=== PATIENT | male | born 1940 | race Caucasian/White ===

== ENCOUNTER 2019-10-01 06:32 | Outpatient (CLI) | payer MEDICARE ==
[2019-10-01 13:57] LABS: Hemoglobin 16.2 g/dL (14.0-18.0); Mean Corpuscular HGB CONC 32.8 g/dL (32.0-36.0); Mean Corpuscular Hemoglobin 31.5 pg (27.0-31.0); Mean Platelet Volume 7.1 fL (7.4-10.4); Platelet Count 331 thou/uL (130-400); RBC Distribution Width 12.6 % (11.5-14.5); Red Blood Cell (RBC) Count 5.15 mill/uL (4.70-6.10); White Blood Cell (WBC) Count 8.3 thou/uL (4.8-10.8)
[2019-10-01 14:02] LABS: INR-International Normal Ratio 0.9; PTT 28.1 SEC (22.9-36.1); Prothrombin Time 12.4 SEC (12.0-14.7)
[2019-10-01 14:23] LABS: Anion Gap 16 mmol/L (10-20); BUN (Urea Nitrogen) 14 mg/dL (8.4-25.7); Calc. Creatinine Clearance 0 mL/min (70-130); Calcium 9.5 mg/dL (7.8-10.44); Carbon Dioxide 23 mmol/L (23-31); Chloride 105 mmol/L (98-107); Estimated GFR-MDRD 74; Glucose 75 mg/dL (83-110); Potassium 4.1 mmol/L (3.5-5.1); Sodium 140 mmol/L (136-145)
== END 2019-10-01 06:33 | disposition home or self-care (01) ==
LOC: LABBT 06:32
PROVIDERS: ATTEND Orthopaedic Surgery
DX: Z01.812 Encounter for preprocedural laboratory examination (principal); M17.11 Unilateral primary osteoarthritis, right knee
CPT/HCPCS: 80048; 85027; 85610; 85730; 86850; 86900; 86901; 87081

== ENCOUNTER 2019-10-01 12:30 | Inpatient (IN) | payer MEDICARE ==
[2019-10-01 12:11] VITALS: BMI 33.2
[2019-10-05] MEDS ORDERED: Sodium Chloride 0.9% 100 ML ONE ×2 (06:37→10:32)
[2019-10-05] MEDS ORDERED: Tranexamic Acid 1,000 MG/10 ML VIAL ONE ×2 (06:37→10:30)
[2019-10-05] MEDS ORDERED: Fentanyl 100 MCG/2 ML VIAL ONE ×4 (06:53→10:41)
[2019-10-05] MEDS ORDERED: Lidocaine 1% (PF) 30 ML VIAL ONE (06:53)
[2019-10-05] MEDS ORDERED: Midazolam HCl 2 mg/2 ml Vial ONE (06:53)
[2019-10-05] MEDS ORDERED: Neomycin-Polymyxin 1 ML AMP ONE (08:06)
[2019-10-05] MEDS ORDERED: Zolpidem Tartrate 5 MG TAB PO PRN (08:17)
[2019-10-05] MEDS ORDERED: Promethazine HCl 25 MG/ML VIAL IM PRN ×3 (08:17→12:17)
[2019-10-05] MEDS ORDERED: Ropivacaine HCl/PF 250 ML in Premix Bag 1 BAG NERVE BLCK SCH (08:17)
[2019-10-05] MEDS ORDERED: traMADol HCl 50 MG TAB PO PRN (08:17)
[2019-10-05] MEDS ORDERED: HYDROcodone/Acetaminophen 10/325 mg Tablet PO PRN ×3 (08:17→12:17)
[2019-10-05] MEDS ORDERED: Ondansetron PF 4 MG/2 ML Vial IVP PRN ×2 (08:17→12:17)
[2019-10-05] MEDS ORDERED: Fentanyl 100 MCG/2 ML VIAL SLOW IVP PRN (08:18)
[2019-10-05] MEDS ORDERED: Acetaminophen 325 MG TAB PO PRN ×2 (08:19→12:17)
[2019-10-05] MEDS ORDERED: Bupivacaine 0.25% HCL 30 ML VIAL ONE (08:24)
[2019-10-05] MEDS ORDERED: Ondansetron HCl/PF 4 MG/2 ML Vial IVP PRN (08:25)
[2019-10-05] MEDS ORDERED: Promethazine HCl 25 MG/ML VIAL SLOW IVP PRN (08:25)
--- NOTE | 2019-10-05 10:13 | RAD ---
XR Knee Rt 2 View: 10/05/2019 9:56 AM CLINICAL INDICATION: Right total knee replacement COMPARISON: None. FINDINGS: Bones: No acute fracture is demonstrated. Joints: There is a right total knee prosthesis that projects in the expected position. There is scatt ered intra-articular and periarticular soft tissue gas. Soft Tissue: No acute abnormality.. IMPRESSION: Right total knee replacement.
[2019-10-05] MEDS ORDERED: Ropivacaine 0.2% HCl/PF (40 MG/20 ML VIAL) ONE (10:32)
[2019-10-05] MEDS ORDERED: Ketorolac Tromethamine 30 MG/ML VIAL ONE (10:32)
[2019-10-05] MEDS ORDERED: Ondansetron PF 4 MG/2 ML Vial ONE (10:32)
[2019-10-05] MEDS ORDERED: Lidocaine 1% PF 5 ML VIAL ONE (10:32)
[2019-10-05] MEDS ORDERED: Ropivacaine 0.5% HCl/PF (150 MG/30 ML VIAL) ONE (10:32)
[2019-10-05] MEDS ORDERED: PHENYLEPHRINE-NS 100 MCG/ML 10 ML SYRINGE ONE (10:32)
[2019-10-05] MEDS ORDERED: Dexamethasone 20 MG/5 ML VIAL ONE (10:32)
[2019-10-05] MEDS ORDERED: PROPOFOL 200 MG/20 ML VIAL ONE (10:32)
[2019-10-05] MEDS ORDERED: diphenhydrAMINE 25 MG CAP PO PRN (12:17)
[2019-10-05] MEDS ORDERED: Morphine 2 MG/ML SYRINGE SLOW IVP PRN (12:17)
[2019-10-05] MEDS ORDERED: Morphine 4 MG/ML VIAL SLOW IVP PRN (12:17)
[2019-10-05] MEDS ORDERED: Tranexamic Acid 1,000 MG in Sodium Chloride 0.9% 100 ML IVPB SCH (12:30)
[2019-10-05] MEDS: Ketorolac Tromethamine 30 MG/ML VIAL IVP SCH ×3 (13:08→23:03)
[2019-10-05] MEDS: CEFAZOLIN 2 GM in Premix Bag 1 BAG IVPB SCH ×2 (14:21→21:03)
[2019-10-05] MEDS: Sodium Chloride 0.9% 1,000 ML IV SCH ×2 (14:21→23:16)
--- NOTE | 2019-10-05 15:50 | OP ---
DATE OF PROCEDURE: 10/05/2019 PREOPERATIVE DIAGNOSIS: Osteoarthritis, right knee. POSTOPERATIVE DIAGNOSIS: Osteoarthritis, right knee. PROCEDURE PERFORMED: Right total knee arthroplasty. ANESTHESIA: General. COMPLICATION: None. CONDITION: Good. ESTIMATED BLOOD LOSS: Minimal. DRAINS: None. TOURNIQUET: Per Anesthesia. TECHNIQUE: Simple stain. DESCRIPTION OF PROCEDURE: The patient was taken to the operating room, placed in supine position. After adequate general anesthesia achieved, the patient's right lower extremity, knee was examined. The patient had a large effusion, significant crepitus with motion, large osteophytes, varus deformity partially correctable. He lacked 5 to 8 degrees of full extension, had 120 degrees of flexion. The right knee was then positioned, prepped, and draped in a sterile fashion. A direct vertical midline incision was made using a subcutaneous tissues exposing extensor mechanism. Medial parapatellar arthrotomy was performed. Patella subluxed laterally. The patient had a large amount of clear joint fluid. The medial compartment had grade 4 eburnated bone, large osteophytes along with patellofemoral arthrosis. Using an intramedullary guide, distal 5 degree. Valgus resection on the femur was performed using AP and epicondylar axis, proper rotation position. Size 7 cutting block was placed. Anterior, posterior, and chamfer cuts were completed for a size 7 evolution femur. Tibia was then subluxed anteriorly. Appropriate medial release was performed along with removal of osteophytes. The tibial cut was referenced from the deficient medial compartment and had significant erosion. The tibial resection was performed. Menisci and cruciate ligaments were debrided. Flexion and extension gaps were then checked with a 10 mm spacer block. Additional medial release was performed and good balancing was noted. Good overall alignment with external guide was checked. The patella was then measured, 10 mm resection was performed. A 38 mm patella was medialized. Trial components were then placed, 7 femur, 7 tibia, 38 patella with a 10 mm bearing surfaces, put through a range of motion. The patient had full flexion, extension, good patellofemoral alignment and tracking, good balancing through full range. The tibial base plate was then marked, prepared with the max. All surfaces were irrigated copiously. Femur, tibia, and patella cemented. Excess cement removed. We again trialed with a 10 mm bearing surface. This was chosen and snapped fit. After copious irrigation, the arthrotomy was closed in #2 [place], #1 Vicryl, the subcu with 0 and 2-0 Vicryl, and skin with odette. Sterile bulky dressing was applied and the patient taken to Recovery in stable condition. PROGNOSIS: Good. PLAN: Begin rehab protocol. Job ID: [id number]
[2019-10-05] MEDS: Aspirin 81 mg Enteric Coated Tablet PO SCH (20:07)
[2019-10-05] MEDS: Senokot S 8.6-50 MG TAB PO SCH (20:07)
[2019-10-05] MEDS: Atorvastatin Calcium 40 MG TAB PO SCH (20:07)
[2019-10-05] MEDS: Ferrous Gluconate 324 MG TAB PO SCH (20:07)
[2019-10-05] MEDS: Zolpidem Tartrate 5 MG TAB PO PRN (23:06)
[2019-10-06] MEDS: Ketorolac Tromethamine 30 MG/ML VIAL IVP SCH ×3 (05:47→17:27)
[2019-10-06 05:48] LABS: Hemoglobin 12.6 g/dL (14.0-18.0); Mean Corpuscular HGB CONC 33.7 g/dL (32.0-36.0); Mean Corpuscular Hemoglobin 31.9 pg (27.0-31.0); Mean Corpuscular Volume 94.8 fL (78.0-98.0); Platelet Count 292 thou/uL (130-400); RBC Distribution Width 12.1 % (11.5-14.5); Red Blood Cell (RBC) Count 3.94 mill/uL (4.70-6.10); White Blood Cell (WBC) Count 15.7 thou/uL (4.8-10.8)
--- NOTE | 2019-10-06 07:12 | PDOC.HOSPP ---
- Subjective Encounter Date: 10/05/19 Encounter Time: 19:00 Subjective: Patient seen and examined for med mngt. Pain controlled. No CP or SOB. No new complaints. - Objective Vital Signs & Weight: Vital Signs (12 hours) Temp Pulse Resp BP Pulse Ox 10/06/19 03:31 97.7 F 84 16 116/72 94 L 10/05/19 23:28 98.2 F 88 16 129/72 92 L 10/05/19 20:20 92 L 10/05/19 20:00 98.1 F 88 16 134/76 93 L Weight Weight 225 lb I&O: 10/05/19 10/06/19 10/07/19 06:59 06:59 06:59 Intake Total 1100 Output Total 300 Balance 800 Result Diagrams: 10/06/19 05:13 Additional Labs: Laboratory Tests 10/01/19 13:00 BUN 14 Creatinine 0.98 EKG Reviewed by me: Yes (SR) Hospitalist ROS - Review of Systems Respiratory: denies: cough, dry, shortness of breath, hemoptysis, SOB with excertion, pleuritic pain, sputum, wheezing, other Cardiovascular: denies: chest pain, palpitations, orthopnea, paroxysmal noc. dyspnea, edema, light headedness, other Gastrointestinal: denies: nausea, vomiting, abdominal pain, diarrhea, constipation, melena, hematochezia, other - Medication Medications: Active Medications Generic Name Dose Route Start Last Admin Trade Name Freq PRN Reason Stop Dose Admin Aspirin 81 mg 10/05/19 21:00 10/05/19 20:07 Ecotrin PO 81 mg BID DERRICK Administration Atorvastatin Calcium 40 mg 10/05/19 21:00 10/05/19 20:07 Lipitor PO 40 mg HS DERRICK Administration Ferrous Gluconate 324 mg 10/05/19 21:00 10/05/19 20:07 Fergon PO 324 mg BID DERRICK Administration Sodium Chloride 1,000 mls @ 100 mls/hr 10/05/19 12:30 10/05/19 23:16 Normal Saline 0.9% IV Not Given .Q10H DERRICK Ketorolac Tromethamine 15 mg 10/05/19 12:00 10/06/19 05:47 Toradol IVP 10/07/19 06:01 15 mg Q6HR DERRICK Administration Senna/Docusate Sodium 2 tab 10/05/19 21:00 10/05/19 20:07 Senokot S PO 2 tab BID DERRICK Administration Zolpidem Tartrate 5 mg 10/05/19 12:17 10/05/19 23:06 Ambien PO 5 mg HSPRN PRN Administration Insomnia - Exam General Appearance: NAD Heart: RRR, no gallops Respiratory: CTAB, no rales Gastrointestinal: soft, non-distended Extremities: no edema Neurological: no new deficit Hosp A/P - Plan DVT proph w/SCDs HTN HLD CKD 2 Obesity BMI 33.2 GERD PLAN: Cont Amlodipine Cont Statins DVT prophylaxis PT/OT Full code. DPOA - spouse
[2019-10-06] MEDS ORDERED: Polyethylene Glycol 3350 17 GM Packet PO PRN (07:17)
[2019-10-06] MEDS ORDERED: Aspirin 81 mg Enteric Coated Tablet PO SCH (09:00)
[2019-10-06] MEDS: Aspirin 81 mg Enteric Coated Tablet PO SCH ×2 (09:04→20:10)
[2019-10-06] MEDS: Senokot S 8.6-50 MG TAB PO SCH ×2 (09:04→20:10)
[2019-10-06] MEDS: Multivitamin W/ Minerals 1 TAB PO SCH (09:05)
[2019-10-06] MEDS: traMADol HCl 50 MG TAB PO PRN (09:05)
[2019-10-06] MEDS: Amlodipine 5 MG TAB PO SCH (09:05)
[2019-10-06] MEDS: Ferrous Gluconate 324 MG TAB PO SCH ×2 (09:06→20:10)
[2019-10-06] MEDS: Sodium Chloride 0.9% 1,000 ML IV SCH ×2 (09:06→19:21)
[2019-10-06] MEDS ORDERED: FLU VACC TS2019-20(65YR UP)/PF 180 MCG/0.5 ML SYRINGE IM ONE (14:30)
[2019-10-06] MEDS: Atorvastatin Calcium 40 MG TAB PO SCH (20:10)
[2019-10-06] MEDS: Zolpidem Tartrate 5 MG TAB PO PRN (21:05)
[2019-10-07] MEDS: Ketorolac Tromethamine 30 MG/ML VIAL IVP SCH ×2 (00:06→05:32)
[2019-10-07] MEDS: Sodium Chloride 0.9% 1,000 ML IV SCH (00:48)
[2019-10-07 06:17] LABS: Hemoglobin 12.2 g/dL (14.0-18.0); Mean Corpuscular HGB CONC 34.4 g/dL (32.0-36.0); Mean Corpuscular Hemoglobin 33.1 pg (27.0-31.0); Mean Corpuscular Volume 96.2 fL (78.0-98.0); Mean Platelet Volume 7.6 fL (7.4-10.4); Platelet Count 253 thou/uL (130-400); RBC Distribution Width 12.4 % (11.5-14.5); Red Blood Cell (RBC) Count 3.68 mill/uL (4.70-6.10); White Blood Cell (WBC) Count 12.2 thou/uL (4.8-10.8)
[2019-10-07] MEDS: Aspirin 81 mg Enteric Coated Tablet PO SCH (08:49)
[2019-10-07] MEDS: Ferrous Gluconate 324 MG TAB PO SCH (08:49)
[2019-10-07] MEDS: Amlodipine 5 MG TAB PO SCH (08:49)
[2019-10-07] MEDS: Multivitamin W/ Minerals 1 TAB PO SCH (08:49)
[2019-10-07] MEDS: Senokot S 8.6-50 MG TAB PO SCH (08:49)
[2019-10-07] MEDS: traMADol HCl 50 MG TAB PO PRN (10:49)
[2019-10-07 11:15] VITALS: BP 151/81; TEMP 98.1
[2019-10-07] MEDS ORDERED: Ropivacaine 0.2% 550 ML 550 ML NERVE BLCK SCH (11:42)
== END 2019-10-07 14:06 | disposition home or self-care (01) | DRG 470 ==
LOC: SURG A 10-05 06:07 → SJJU 10-05 12:15
PROVIDERS: ADMIT Orthopaedic Surgery; ATTEND Orthopaedic Surgery
PROC: 0SRC0J9 Replacement of Right Knee Joint with Synthetic Substitute, Cemented, Open Approach (ICD-10-PCS; principal; 2019-10-05)
DX: M17.11 Unilateral primary osteoarthritis, right knee (principal); E78.5 Hyperlipidemia, unspecified; F41.9 Anxiety disorder, unspecified; N18.2 Chronic kidney disease, stage 2 (mild); I12.9 Hypertensive chronic kidney disease with stage 1 through stage 4 chronic kidney disease, or unspecified chronic kidney disease; K21.9 Gastro-esophageal reflux disease without esophagitis; E66.9 Obesity, unspecified; Z68.33 Body mass index [BMI] 33.0-33.9, adult; Z87.891 Personal history of nicotine dependence
CPT/HCPCS: 36415; 85027; A4306; C1713; C1776; J0690; J1100; J1885; J2001; J2250; J2405; J2704; J2795; J3010; J3490; S0020